=== PATIENT | male | born 1960 | race Caucasian/White ===

== ENCOUNTER → 2018-08-15 | Outpatient (CLI) | payer BC ==
--- NOTE | 2018-08-18 13:11 | XR ---
EXAMINATION TYPE: XR KUB DATE OF EXAM: 08/15/2018 COMPARISON: NONE HISTORY: Pain TECHNIQUE: One view abdominal series FINDINGS: Exam is part of a incomplete work report. Exam is dated 08/15/2018 and submitted for dictat ion on 08/18/2018. The osseous structures are intact. The bowel gas pattern is nonspecific. There is a large 1.4 cm low er pole right renal calculus. No definite calcifications overlying the left kidney. Mild hypertrophic change of the vertebral column and hip joints. IMPRESSION: 1. 1.4 cm lower pole right renal calculus. Majority of the mid and upper poles of both kidneys are se cured by bowel content.
== END ==
LOC: RADXRMAIN 11:26
PROVIDERS: ATTEND Urology
DX: N20.0 Calculus of kidney (principal)
CPT/HCPCS: 74018

== ENCOUNTER → 2018-08-19 | Outpatient (CLI) | payer BC ==
[2018-08-19 16:38] LABS: Basophils % (A) 0 %; Eosinophils # (A) 0.1 k/uL (0-0.7); Eosinophils % (A) 2 %; HCT 46.8 % (39.0-53.0); HGB 15.7 gm/dL (13.0-17.5); Lymphocytes # (A) 1.9 k/uL (1.0-4.8); Lymphocytes % (A) 37 %; MCH 30.8 pg (25.0-35.0); MCHC 33.5 g/dL (31.0-37.0); MCV 92.1 fL (80.0-100.0); Mean Platelet Volume 6.6; Monocytes # (A) 0.3 k/uL (0-1.0); Monocytes % (A) 5 %; Neutrophils # (A) 2.8 k/uL (1.3-7.7); Neutrophils % (A) 54 %; Platelet Count 204 k/uL (150-450); RBC 5.09 m/uL (4.30-5.90); RDW 12.8 % (11.5-15.5); WBC 5.2 k/uL (3.8-10.6)
[2018-08-19 16:44] LABS: Amorphous Sediment,Urine Rare /hpf; Appearance,Urine Turbid (Clear); Bilirubin,Urine Negative (Negative); Blood,Urine Negative (Negative); Color,Urine Light Yellow; Glucose,Urine (UA) 1+ (Negative); Ketones,Urine Negative (Negative); Leukocyte Esterase,Urine Small (Negative); Nitrite,Urine Negative (Negative); Protein,Urine Negative (Negative); RBC,Urine 9 /hpf (0-5); Specific Gravity,Urine 1.014 (1.001-1.035); Urobilinogen,Urine <2.0 mg/dL (<2.0); WBC,Urine 14 /hpf (0-5)
[2018-08-19 16:54] LABS: Anion Gap 10 mmol/L; Blood Urea Nitrogen 24 mg/dL (9-20); Carbon Dioxide 29 mmol/L (22-30); Chloride 101 mmol/L (98-107); Potassium 4.7 mmol/L (3.5-5.1); Sodium 140 mmol/L (137-145)
== END | disposition home or self-care (01) ==
LOC: LABPAT 15:49
PROVIDERS: ATTEND Urology
DX: Z01.812 Encounter for preprocedural laboratory examination (principal); N20.0 Calculus of kidney; R31.29 Other microscopic hematuria; E11.9 Type 2 diabetes mellitus without complications
CPT/HCPCS: 36415; 80051; 81001; 82565; 84520; 85025

== ENCOUNTER 2018-08-25 08:18 | Day surgery (SDC) | payer BC ==
[2018-08-21 18:21] VITALS: BMI 32.3
--- NOTE | 2018-08-24 19:18 | P.GSHP ---
History of Present Illness H&P Date: 08/24/18 58 yo male with a history of stones Presented with right flank pain He has tw stones in the right kidney at 10 mm and 4 mm He comes for eswl right The risks and alternatives have been discussed. - Review of Systems All systems: negative - Genitourinary (Female) Genitourinary: Reports as per HPI Past Medical History Past Medical History: Diabetes Mellitus, Hyperlipidemia, Hypertension Additional Past Medical History / Comment(s): kidney stones, fatty liver History of Any Multi-Drug Resistant Organisms: None Reported Past Surgical History: Orthopedic Surgery, Tonsillectomy Additional Past Surgical History / Comment(s): left shoulder rotator cuff repair , cystoscopy w/stent placement July 2015, colonoscopy Past Anesthesia/Blood Transfusion Reactions: No Reported Reaction Smoking Status: Former smoker - Past Family History Father Family Medical History: Cancer Medications and Allergies Home Medications Medication Instructions Recorded Confirmed Type Ascorbic Acid [Vitamin C] 500 mg PO -[facility] 05/23/15 08/21/18 History Aspirin [facility] 05[facility] 08/21/18 History Cholecalciferol [Vitamin D3] 2,000 unit PO -[facility] 05/23/15 08/21/18 History Fenofibrate Nanocrystallized 145 mg PO DAILY 05/23/15 08/21/18 History [Fenofibrate] Glimepiride [Amaryl] 4 mg PO BID 05/23/15 08/21/18 History Losartan/Hydrochlorothiazide 1 tab PO DAILY 05/23/15 08/21/18 History [Losartan-Hctz 100-12.5 mg Tab] Magnesium Oxide [Mag-Ox] 400 mg PO -[facility] 05/23/15 08/21/18 History Multivitamin [Men's Multi-Vitamin] 1 tab PO -[facility] 05/23/15 08/21/18 History Pravastatin Sodium [Pravachol] 40 mg PO HS 05/23/15 08/21/18 History Tamsulosin HCl [Flomax] 0.4 mg PO DAILY 05/23/15 08/21/18 History amLODIPine BESYLATE [Norvasc] 5 mg PO DAILY 05/23/15 08/21/18 History metFORMIN HCL 1,000 mg PO BID 05/23/15 08/21/18 History Krill/Om-3/Dha/Epa/Phospho/Ast 1 each PO AC-BRKFST 07/04/15 08/21/18 History [[place]-3 Krill Oil 300 mg Sfgl] Cranberry Fruit Extract [Cranberry] 500 mg PO DAILY 08/21/18 08/21/18 History Dulaglutide [Trulicity] 1.5 mg SQ VOGT 08/21/18 08/21/18 History Insulin Detemir [Levemir] 20 unit SQ HS 08/21/18 08/21/18 History traMADol HCL [Ultram] 100 mg PO Q6HR PRN 08/21/18 08/21/18 History Allergies Allergy/AdvReac Type Severity Reaction Status Date / Time No Known Allergies Allergy Verified 08/21/18 18:21 Surgical - Exam - General well developed, well nourished, no distress - Eyes PERRL - ENT no hearing loss - Neck trachea midline - Respiratory normal expansion, normal respiratory effort - Cardiovascular Rhythm: regular - Abdomen Abdomen: soft, non tender - Genitourinary normal penis with no external lesions, testicles present - Integumentary no rash - Neurologic normal coordination, normal sensation - Musculoskeletal normal gait, normal posture - Psychiatric oriented to time, oriented to person, oriented to place, speech is normal, memory intact Results - Imaging Abdominal x-ray: report reviewed, image reviewed Assessment and Plan Assessment: Impression: Right renal calculi Plan: ESWL right
[~2018-08-25 08:18] MED LIST: LACTATED RINGERS 1,000 ML IV SCH; Pre Op ABX Message 1 EACH MISC MISCELLANE ONE
--- NOTE | 2018-08-25 08:37 | XR ---
EXAMINATION TYPE: XR KUB DATE OF EXAM: 08/25/2018 8:29 AM CLINICAL HISTORY: Abdominal x-ray [address] abdomen and pelvis July 04, 2015. TECHNIQUE: Two supine KUB images of the abdomen are obtained. COMPARISON: None. FINDINGS: There is 16mm calculus mid to lower pole level right kidney inferior L2 level redemonstrate d. There are suspected 1-2 small left renal calculi at L2 level measuring 5 mm or smaller. Overall nonobstructive bowel gas pattern. Visualized osseous structures are intact. IMPRESSION: Stable dominant 14 to 16 mm calculus mid to lower pole level centrally right kidney.
[2018-08-25 09:05] VITALS: TEMP 97.2
[2018-08-25] MEDS ORDERED: LIDOCAINE 1% 20 ML VIAL (10MG/ML) FOR IV START INTRADERMA ONE (09:13)
[2018-08-25] MEDS ORDERED: MIDAZOLAM 2 MG/2 ML VIAL ONE (09:29)
[2018-08-25] MEDS ORDERED: fentaNYL (PF) 50 MCG/ML 2 ML AMP ONE (09:29)
[2018-08-25] MEDS ORDERED: PROPOFOL 10 MG/ML 20 ML VIAL IV ONE (09:29)
[2018-08-25 09:36] LABS: Glucose,Whole Blood 179 mg/dL (75-99)
--- NOTE | 2018-08-25 10:01 | P.OP ---
Date of Procedure: 08/25/18 Preoperative Diagnosis: Right renal calculus Postoperative Diagnosis: Same Procedure(s) Performed: ESWL right 2500 shocks at energy level IV Anesthesia: MAC Surgeon: Ady Singh Estimated Blood Loss (ml): 0 Pathology: none sent Condition: stable Disposition: PACU Indications for Procedure: The patient is 58. He has a 15 mm right renal stone that is painful. He comes for shockwave lithotripsy Description of Procedure: The patient is brought to the lithotripsy suite. He was placed on the lithotripsy table in a supine position. The stone was seen in 2 views of fluoroscopy. 2500 shocks at energy level IV administered. The stone fractures nicely. Then of the procedure the patient's awakened and returned recovery room in good condition.
[2018-08-25 10:12] VITALS: RESP 16
[2018-08-25 10:18] LABS: Glucose,Whole Blood 149 mg/dL (75-99)
[2018-08-25] MEDS ORDERED: HYDROcodone/APAP 5-325MG 1 EACH TAB PO ONE (10:25)
[2018-08-25 10:51] VITALS: BP 133/82; PULSE 79
== END 2018-08-25 11:01 | disposition home or self-care (01) ==
LOC: ORWHC2ENDO 08:18
PROVIDERS: ATTEND Urology
DX: N20.0 Calculus of kidney (principal); E11.9 Type 2 diabetes mellitus without complications; Z79.4 Long term (current) use of insulin; E78.5 Hyperlipidemia, unspecified; I10 Essential (primary) hypertension; Z87.891 Personal history of nicotine dependence; Z79.82 Long term (current) use of aspirin; Z79.899 Other long term (current) drug therapy
CPT/HCPCS: 74018; 50590; J2250; J3010; J2704

== ENCOUNTER → 2018-09-01 | Outpatient (CLI) | payer BC ==
--- NOTE | 2018-09-01 08:50 | XR ---
EXAMINATION TYPE: XR abdomen 1V DATE OF EXAM: 09/01/2018 COMPARISON: 08/25/2018 HISTORY: Post lithotripsy TECHNIQUE: One view abdominal series FINDINGS: The osseous structures are intact. The bowel gas pattern is nonspecific. Left kidney: There is a single punctate 2 mm lower pole calculus. Right kidney: Approximately 8 punctate calcifications overlying the lower pole. Could not exclude a l arger calcification centrally overlying the 12th rib. The lower pole calculus previously noted appear s to been fragmented. No suspicious calcifications within the pelvis. Arthropathy of the hips noted.. IMPRESSION: 1. Bilateral nephrolithiasis with apparent fragmentation of a lower pole right renal calculus.
== END | disposition home or self-care (01) ==
LOC: RADXRMAIN 06:56
PROVIDERS: ATTEND Urology
DX: N20.0 Calculus of kidney (principal)
CPT/HCPCS: 74018

== ENCOUNTER → 2018-10-11 | Outpatient (CLI) | payer BC | END | disposition home or self-care (01) | LOC: LABWHC1 10:01 | PROVIDERS: ATTEND Family Medicine | DX: R35.1 Nocturia (principal) | CPT/HCPCS: 36415; 84153; 84439; 84443 ==

== ENCOUNTER → 2019-04-11 | Outpatient (CLI) | payer BC ==
[2019-04-11 16:17] LABS: African American GFR (CKD) 110.3 (60.0-200.0); Albumin 4.7 g/dL (3.80-4.90); Albumin/Globulin Ratio 2.47 (1.60-3.17); Anion Gap 6.3 mmol/L (4.00-12.00); BUN/Creat Ratio 17.78 Ratio (12.00-20.00); Calcium 9.2 mg/dL (8.7-10.3); Carbon Dioxide 26.7 mmol/L (21.6-31.8); Chol/HDL Ratio 3.09; Globulin 1.9 g/dL (1.6-3.3); LDL Cholesterol,Calculated 50.8 mg/dL (0.0-131.0); Potassium 4.2 mmol/L (3.5-5.5); Total Bilirubin 0.5 mg/dL (0.3-1.2); Total Protein 6.6 g/dL (6.2-8.2); VLDL Calculation 43.2 mg/dL (5.00-40.00)
[2019-04-11 21:05] LABS: Hemoglobin A1C 7.4 % (4.0-6.0)
== END | disposition home or self-care (01) ==
LOC: LABWHC1 08:48
PROVIDERS: ATTEND Internal Medicine Endocrinology, Diabetes & Metabolism
DX: E11.65 Type 2 diabetes mellitus with hyperglycemia (principal)
CPT/HCPCS: 36415; 80053; 80061; 82043; 82570; 83036; 84443

== ENCOUNTER → 2019-10-17 | Outpatient (CLI) | payer BC ==
[2019-10-17 08:31] LABS: HCT 49.5 % (39.0-53.0); HGB 16.1 gm/dL (13.0-17.5); MCH 30.2 pg (25.0-35.0); MCHC 32.5 g/dL (31.0-37.0); MCV 92.9 fL (80.0-100.0); Mean Platelet Volume 7.3; Platelet Count 206 k/uL (150-450); RBC 5.33 m/uL (4.30-5.90); RDW 12.6 % (11.5-15.5); WBC 4.3 k/uL (3.8-10.6)
[2019-10-17 17:34] LABS: African American GFR (CKD) 109.5 (60.0-200.0); Albumin 4.8 g/dL (3.80-4.90); Albumin/Globulin Ratio 2.18 (1.60-3.17); BUN/Creat Ratio 17.78 Ratio (12.00-20.00); Calcium 9.5 mg/dL (8.7-10.3); Chol/HDL Ratio 3.11; Globulin 2.2 g/dL (1.6-3.3); LDL Cholesterol,Calculated 41.8 mg/dL (0.0-131.0); Non-African American GFR(CKD) 94.5 (60.0-200.0); Potassium 4.3 mmol/L (3.5-5.5); Total Bilirubin 0.5 mg/dL (0.2-1.2); VLDL Calculation 55.2 mg/dL (5.00-40.00)
[2019-10-17 17:41] LABS: T4, Free (Free Thyroxine) 1.3 ng/dL (0.80-1.80)
[2019-10-17 19:01] LABS: Hemoglobin A1C 8.1 % (4.0-6.0)
[2019-10-17 23:31] LABS: Urine Creatinine 94.1 mg/dL
== END | disposition home or self-care (01) ==
LOC: LABWHC1 08:05
PROVIDERS: ATTEND Family Medicine
DX: Z00.01 Encounter for general adult medical examination with abnormal findings (principal); I10 Essential (primary) hypertension; E11.9 Type 2 diabetes mellitus without complications; Z12.5 Encounter for screening for malignant neoplasm of prostate
CPT/HCPCS: 36415; 80053; 80061; 82043; 82570; 83036; 84153; 84439; 84443; 85027

== ENCOUNTER → 2020-11-04 | Outpatient (CLI) | payer BC ==
[2020-11-04 11:44] LABS: African American GFR (CKD) 85.3 (60.0-200.0); Albumin 4.9 g/dL (3.80-4.90); Albumin/Globulin Ratio 2.58 (1.60-3.17); Anion Gap 8.2 mmol/L (4.00-12.00); BUN/Creat Ratio 14.55 Ratio (12.00-20.00); Calcium 9.2 mg/dL (8.7-10.3); Carbon Dioxide 27.8 mmol/L (21.6-31.8); Chol/HDL Ratio 3.97; Globulin 1.9 g/dL (1.6-3.3); LDL Cholesterol,Calculated 44.8 mg/dL (0.0-131.0); Non-African American GFR(CKD) 73.6 (60.0-200.0); Potassium 4.2 mmol/L (3.5-5.5); Total Bilirubin 0.6 mg/dL (0.3-1.2); Total Protein 6.8 g/dL (6.2-8.2); VLDL Calculation 68.2 mg/dL (5.00-40.00)
[2020-11-04 13:33] LABS: Urine Creatinine 138.2 mg/dL
[2020-11-04 16:28] LABS: Hemoglobin A1C 8.2 % (4.0-6.0)
== END | disposition home or self-care (01) ==
LOC: LABWHC1 07:05
PROVIDERS: ATTEND Internal Medicine Endocrinology, Diabetes & Metabolism
DX: E11.65 Type 2 diabetes mellitus with hyperglycemia (principal)
CPT/HCPCS: 36415; 80053; 80061; 82043; 82570; 83036; 84443

== ENCOUNTER → 2021-06-27 | Outpatient (CLI) | payer BC ==
[2021-06-27 14:31] LABS: ALT 31 U/L (10-49); AST 21 U/L (14-35); African American GFR (CKD) 95.7 (60.0-200.0); Albumin 4.6 g/dL (3.8-4.9); Albumin/Globulin Ratio 2.11 (1.60-3.17); Alkaline Phosphatase 61 U/L (41-126); Blood Urea Nitrogen 21.7 mg/dL (9.0-27.0); Calcium 9.3 mg/dL (8.7-10.3); Chloride 104 mmol/L (96-109); Chol/HDL Ratio 3.59 Ratio; Globulin 2.2 g/dL (1.6-3.3); Glucose 266 mg/dL (70-110); LDL Cholesterol,Calculated 55.4 mg/dL (0.0-131.0); Non-African American GFR(CKD) 82.6 (60.0-200.0); Potassium 4.4 mmol/L (3.5-5.5); Sodium 142 mmol/L (135-145); Total Protein 6.8 g/dL (6.2-8.2)
== END | disposition home or self-care (01) ==
LOC: LABWHC1 07:01
PROVIDERS: ATTEND Internal Medicine Endocrinology, Diabetes & Metabolism
DX: E11.65 Type 2 diabetes mellitus with hyperglycemia (principal); E55.9 Vitamin D deficiency, unspecified
CPT/HCPCS: 36415; 80053; 80061; 82043; 82306; 82570; 83036; 84443

== ENCOUNTER → 2022-02-10 | Outpatient (CLI) | payer BC ==
[2022-02-10 12:20] LABS: ALT 33 U/L (10-49); AST 26 U/L (14-35); African American GFR (CKD) 111.2 (60.0-200.0); Albumin 4.6 g/dL (3.8-4.9); Alkaline Phosphatase 55 U/L (41-126); BUN/Creat Ratio 20.05 Ratio (12.00-20.00); Blood Urea Nitrogen 16.8 mg/dL (9.0-27.0); Calcium 9.9 mg/dL (8.7-10.3); Carbon Dioxide 25.9 mmol/L (20.0-27.5); Chloride 102 mmol/L (96-109); Chol/HDL Ratio 3.32 Ratio; Globulin 2.1 g/dL (1.6-3.3); Glucose 237 mg/dL (70-110); LDL Cholesterol,Calculated 52.2 mg/dL (0.0-131.0); Non-African American GFR(CKD) 95.9 (60.0-200.0); Potassium 4.8 mmol/L (3.5-5.5); Sodium 140 mmol/L (135-145); Total Protein 6.7 g/dL (6.2-8.2)
[2022-02-10 22:20] LABS: Microalbumin Creatinine Ratio <30 mg/g Creat (0-30); Urine Creatinine 74.8 mg/dL (39.0-259.0)
== END | disposition home or self-care (01) ==
LOC: LABWHC1 07:48
PROVIDERS: ATTEND Internal Medicine Endocrinology, Diabetes & Metabolism
DX: E11.65 Type 2 diabetes mellitus with hyperglycemia (principal); E55.9 Vitamin D deficiency, unspecified
CPT/HCPCS: 36415; 80053; 80061; 82043; 82306; 82570; 83036; 84443

== ENCOUNTER → 2022-06-15 | Outpatient (CLI) | payer BC ==
[2022-06-15 11:09] LABS: ALT 25 U/L (10-49); AST 29 U/L (14-35); African American GFR (CKD) 101.5 (60.0-200.0); Albumin 4.6 g/dL (3.8-4.9); Albumin/Globulin Ratio 1.78 (1.60-3.17); Alkaline Phosphatase 45 U/L (41-126); BUN/Creat Ratio 20.27 Ratio (12.00-20.00); Blood Urea Nitrogen 19.2 mg/dL (9.0-27.0); Calcium 9.5 mg/dL (8.7-10.3); Carbon Dioxide 24.3 mmol/L (20.0-27.5); Chloride 105 mmol/L (96-109); Chol/HDL Ratio 3.19 Ratio; Globulin 2.6 g/dL (1.6-3.3); Glucose 168 mg/dL (70-110); LDL Cholesterol,Calculated 67.1 mg/dL (0.0-131.0); Non-African American GFR(CKD) 87.6 (60.0-200.0); Potassium 4.3 mmol/L (3.5-5.5); Sodium 142 mmol/L (135-145); Total Protein 7.2 g/dL (6.2-8.2)
[2022-06-15 14:03] LABS: Microalbumin Creatinine Ratio <30 mg/g Creat (0-30); Urine Creatinine 91.2 mg/dL (39.0-259.0)
== END | disposition home or self-care (01) ==
LOC: LABWHC1 06:55
PROVIDERS: ATTEND Internal Medicine Endocrinology, Diabetes & Metabolism
DX: E11.65 Type 2 diabetes mellitus with hyperglycemia (principal); E55.9 Vitamin D deficiency, unspecified
CPT/HCPCS: 36415; 80053; 80061; 82043; 82306; 82570; 83036; 84443

== ENCOUNTER → 2022-08-14 | Outpatient (CLI) | payer BC ==
--- NOTE | 2022-08-14 16:02 | XR ---
EXAMINATION TYPE: XR KUB DATE OF EXAM: 08/14/2022 COMPARISON: NONE HISTORY: Pain TECHNIQUE: One view abdominal series FINDINGS: The osseous structures are intact. The bowel gas pattern is nonspecific. Hypertrophic changes of the spine. Arthropathy of the hips. Metallic device overlying the right iliac bone could be superficial to the patient. Rounded calcification overlying the left upper quadrant could represent splenic granu arturo. Left kidney: There is a 2 mm calcification lower pole left renal outline. Right kidney: No suspicious calcifications identified.. IMPRESSION: 1. There is a 2 mm lower pole left renal calculus.
== END | disposition home or self-care (01) ==
LOC: RADXRMAIN 15:32
PROVIDERS: ATTEND Urology
DX: N20.2 Calculus of kidney with calculus of ureter (principal)
CPT/HCPCS: 74018

== ENCOUNTER → 2022-09-08 | Outpatient (CLI) | payer BC ==
[2022-09-08 11:24] LABS: Urine Creatinine 49.9 mg/dL (39.0-259.0)
[2022-09-08 11:29] LABS: ALT 29 U/L (10-49); AST 23 U/L (14-35); African American GFR (CKD) 112.5 (60.0-200.0); Albumin 4.7 g/dL (3.8-4.9); Albumin/Globulin Ratio 2.04 (1.60-3.17); Alkaline Phosphatase 47 U/L (41-126); BUN/Creat Ratio 22.13 Ratio (12.00-20.00); Blood Urea Nitrogen 17.7 mg/dL (9.0-27.0); Calcium 9.9 mg/dL (8.7-10.3); Carbon Dioxide 28.2 mmol/L (20.0-27.5); Chloride 106 mmol/L (96-109); Chol/HDL Ratio 2.95 Ratio; Globulin 2.3 g/dL (1.6-3.3); Glucose 146 mg/dL (70-110); LDL Cholesterol,Calculated 63.3 mg/dL (0.0-131.0); Non-African American GFR(CKD) 97.1 (60.0-200.0); Potassium 4.4 mmol/L (3.5-5.5); Sodium 144 mmol/L (135-145)
== END | disposition home or self-care (01) ==
LOC: LABWHC1 08:02
PROVIDERS: ATTEND Internal Medicine Endocrinology, Diabetes & Metabolism
DX: E11.65 Type 2 diabetes mellitus with hyperglycemia (principal)
CPT/HCPCS: 36415; 80053; 80061; 82043; 82570; 83036; 84443

== ENCOUNTER → 2023-10-01 | Outpatient (CLI) | payer BC ==
[2023-10-01 11:12] LABS: Basophils # (A) 0.04 X 10*3/uL (0.00-0.10); Eosinophils # (A) 0.06 X 10*3/uL (0.04-0.35); Eosinophils % (A) 1.4 %; HCT 45.5 % (39.6-50.0); HGB 15.2 g/dL (13.0-17.0); Immature Grans, Automated 0 %; Lymphocytes % (A) 40.8 %; MCH 30.2 pg (27.0-32.0); MCHC 33.4 g/dL (32.0-37.0); MCV 90.5 FL (80.0-97.0); Mean Platelet Volume 10.2 FL (9.5-12.2); Monocytes # (A) 0.33 X 10*3/uL (0.20-1.00); Monocytes % (A) 7.9 %; NRBC Per 100 WBC 0 X 10*3/uL (0.00-0.01); Neutrophils # (A) 2.04 X 10*3/uL (1.80-7.70); Neutrophils % (A) 48.9 %; Platelet Count 163 X 10*3/uL (140-440); RBC 5.03 X 10*6/uL (4.40-5.60); RDW 12.7 % (11.5-14.5); WBC 4.17 X 10*3/uL (4.50-10.00)
[2023-10-01 11:36] LABS: ALT 27 U/L (10-49); AST 25 U/L (14-35); Albumin 4.6 g/dL (3.8-4.9); Albumin/Globulin Ratio 1.84 Ratio (1.60-3.17); Alkaline Phosphatase 48 U/L (41-126); BUN/Creat Ratio 21.44 Ratio (12.00-20.00); Blood Urea Nitrogen 19.3 mg/dL (9.0-27.0); Calcium 9.4 mg/dL (8.7-10.3); Carbon Dioxide 25.8 mmol/L (21.6-31.8); Chloride 104 mmol/L (96-109); Chol/HDL Ratio 3.26 Ratio; Creatine Kinase 52 U/L (35-257); Globulin 2.5 g/dL (1.6-3.3); Glucose 216 mg/dL (70-110); LDL Cholesterol,Calculated 77.7 mg/dL (0.0-131.0); Potassium 4.3 mmol/L (3.5-5.5); Prostate Specific Antigen 0.31 ng/mL (0.000-4.500); Sodium 141 mmol/L (135-145); Total Bilirubin 0.3 mg/dL (0.3-1.2); Total Protein 7.1 g/dL (6.2-8.2)
== END | disposition home or self-care (01) ==
LOC: LABWHC1 06:48
PROVIDERS: ATTEND Family Medicine
DX: Z00.00 Encounter for general adult medical examination without abnormal findings (principal); Z12.5 Encounter for screening for malignant neoplasm of prostate; I10 Essential (primary) hypertension; E78.5 Hyperlipidemia, unspecified; E11.65 Type 2 diabetes mellitus with hyperglycemia; Z79.899 Other long term (current) drug therapy
CPT/HCPCS: 36415; 80053; 80061; 82550; 83036; 84153; 84443; 85025

== ENCOUNTER → 2023-11-13 | Outpatient (CLI) | payer BC ==
--- NOTE | 2023-11-14 08:06 | XR ---
EXAMINATION TYPE: XR KUB DATE OF EXAM: 11/13/2023 COMPARISON: 08/14/2022 HISTORY: Right-sided renal stone TECHNIQUE: One view abdominal series FINDINGS: The osseous structures are intact. The bowel gas pattern is nonspecific. Lung bases are clear. [employer]ins[employer] Apprentice rafita deformity of the right acetabulum. Calcifications in the pelvis may be related to the prostate. There are 3 punctate calcifications overlying the lower pole the left kidney. All measure 3 mm or les s. Right kidney is obscured by bowel content. There is an oblong calcification in the left hemipelvis measuring diameter 4 mm. Nonspecific potentia lly within the course of the left ureter. IMPRESSION: 1. There are multiple left renal calculi measuring 3 mm or less. Within the left hemipelvis there is a questionable left ureteral calculus measuring 4 mm in diameter. 2. Right renal outline is obscured..
== END | disposition home or self-care (01) ==
LOC: RADXRMAIN 15:51
PROVIDERS: ATTEND Urology
DX: N20.0 Calculus of kidney (principal)
CPT/HCPCS: 74018